=== PATIENT | male | born 1980 | race Caucasian/White ===

== ENCOUNTER 2017-10-03 22:33 | Inpatient (IN) ==
[2017-10-04] MEDS: Ondansetron 4 MG/2 ML VIAL IVP PRN ×3 (00:20→19:27)
[2017-10-04] MEDS ORDERED: Acetaminophen 325 MG TABLET PO PRN (01:28)
[2017-10-04] MEDS ORDERED: Naloxone 0.4 MG/ML INJ IVP PRN (01:28)
[2017-10-04] MEDS ORDERED: Ondansetron 4 MG/2 ML VIAL IVP PRN (01:30)
[2017-10-04] MEDS ORDERED: *HR* OxyCODONE Immed Rel 5 MG TABLET PO PRN (01:31)
--- NOTE | 2017-10-04 01:33 | Internal Med History&Physical ---
Date of Encounter: 10/04/17 Time of Encounter: 01:33 Internal Medicine - H&P: HPI Chief complaint: Nausea and vomiting Admitted From: Emergency Dept Plans for Post Hospital Care: Home History of present illness: Mr. Tello is a 37 year old male with no significant past medical history, who presents from [facility] with c/o- severe nausea and vomiting since yesterday. He reports being in his usual state of health until yesterday morning around 11.30am, when he started having refractory nausea and nonbloody, bilious vomiting, which turned slightly blood-tinged towards the end. He also has associated epigastric and chest pain and central abdominal pain, subjective fever and chills. No diarrhea, shortness of breath. No sick contacts at home, no outside food ingestion. No EGD in the past. Past Med Surg Social Fam HX - Past Medical History Source: patient Medical history: no medical history Psychiatric history: no psych history - Past Surgical History Surgical History: orthopedic, other (spinal fusion) - Social History Smoking Status: Current every day smoker Packs per day: 3/ Smokeless Tobacco Status: No Alcohol use: rarely Drug use: marijuana Occupational status: employed Current living situation: Home, With Family Activity Level: Independent ambulation Recent Out of Country Travel Within the Last 8 Weeks: No Exposure or Possible Exposure to Illness During Travel: No - Family History Grandfather Living Status: Cause of : stomach cancer Hx Family Cancer: Yes (stomach) Internal Medicine - H&P: Meds No Known Home Drugs 10/03/17 [History] 3 Allergy/AdvReac Type Severity Reaction Status Date / Time No Known Allergies Allergy Verified 10/03/17 20:03 All Systems PM: A 10-system review of systems was performed and is negative for pertinent findings except as documented above in the HPI. - Constitutional Constitutional: chills, fever(s) - EENT Eyes: no change in vision, no discharge, no pain, no photophobia Ears: no ear discharge, no ear pain, no tinnitus Nose, mouth and throat: no dysphagia, no nasal discharge, no neck pain, no sore throat - Cardiovascular Cardiovascular ROS IM: chest pain - Respiratory Respiratory: no cough, no dyspnea, no wheezing, no excessive phlegm production - Gastrointestinal Gastrointestinal: abdominal pain, nausea, vomiting - Musculoskeletal Musculoskeletal ROS IM: no numbness, no tingling - Integumentary Integumentary IM: no rash, no unusual bruising - Neurological Neurological ROS: no confusion, no convulsions, no focal weakness, no numbness, no tingling, no tremor(s) - Hematologic/Lymphatic Hematologic/Lymphatic: no easy bruising - Constitutional Vitals: Temp Pulse Resp BP Pulse Ox 97.7 F 92 16 149/93 96 10/04/17 00:26 10/04/17 00:10/04/17 00:10/04/17 00:10/04/17 00:26 General appearance: Present: mild distress, A&O X 3, answers questions appropriately - Respiratory Respiratory exam: Present: CTAB. Absent: accessory muscle use, rales, rhonchi, wheezes - Cardiovascular Cardiovascular exam: Present: RRR, +S1, +S2. Absent: diastolic murmur, gallop, rubs, systolic murmur - GI/Abdominal GI/Abdominal exam: Present: normal bowel sounds, soft (tenderness to deep palpation in epigastrium and central abdomen), no peritoneal signs. Absent: distended, tenderness - Extremities Exam Extremities exam: Present: full ROM, warm, radial pulses palpable and symmetrical. Absent: calf tenderness, cyanotic, pedal edema - Neurological Exam Neurological exam: Present: CN II-XII intact, oriented X3, no focal deficits. Absent: pronater drift, facial droop, speech deficit - Skin Skin exam: Present: dry, intact Internal Med - H&P Results - Labs CBC & Chem 7: 10/04/17 01:40 10/04/17 01:40 - Assessment and plan (1) Intractable nausea and vomiting Current Visit: Yes Status: Acute Assessment and plan: likely related to esophagitis/GERD; continue supportive care with IV hydration, PRN antiemetics and pain control with PRN Morphine; Qualifiers: Vomiting type: unspecified Qualified Code(s): R11.2 - Nausea with vomiting , unspecified (2) FRANCES (acute kidney injury) Current Visit: Yes Status: Acute Assessment and plan: due to dehydration and GI losses; continue IV hydration, replete electrolytes and monitor serum creatinine closely; (3) Esophagitis Current Visit: Yes Status: Acute Assessment and plan: CT abdomen/pelvis shows distal esophageal wall thickening, lymphadenopathy, s/o - inflammation; may require EGD and biopsy; GI consult; - Time Spent With Patient Total time spent is greater than 50% in coordination of care (as documented) at patient's floor/unit and/or counseling patient:
[2017-10-04 02:09] LABS: Basophils # 0.1 K/mcL (0.0-0.2); Basophils % 0.3 %; Eosinophils % 0.1 %; Hematocrit 45.7 % (37.5-50.1); Hemoglobin 15.7 g/dL (12.9-16.9); Immature Granulocytes % 0.5 % (0-4); Lymphocytes # 1.9 K/mcL (0.6-4.6); Lymphocytes % 11.2 %; Mean Corpuscular HGB Conc 34.4 g/dL (31.6-35.5); Mean Corpuscular Hemoglobin 30.3 pg (28.0-33.3); Mean Corpuscular Volume 88.1 fL (83.0-100.0); Mean Platelet Volume 9.9 fL (9.4-12.4); Monocytes # 1.4 K/mcL (0.0-1.3); Monocytes % 8.1 %; Neutrophils # 13.3 K/mcL (1.6-8.9); Platelet Count 242 K/mcL (140-400); Red Blood Count 5.19 M/mcL (4.19-5.50); Red Cell Distribution Width 13.9 % (11.5-14.5); Segmented Neutrophils % 79.8 %
[2017-10-04] MEDS: OXYCODONE Oral CONC 10 MG/0.5 ML ORAL.SYG SL PRN ×3 (02:14→19:36)
[2017-10-04] MEDS: Ringers Solution, Lactated 1,000 ML IVC SCH ×2 (02:15→13:58)
[2017-10-04 02:32] LABS: BUN/Creatinine Ratio 15 (6-26); Blood Urea Nitrogen 15 mg/dL (6-20); Calcium 8.8 mg/dL (8.6-10.3); Carbon Dioxide 30 mEq/L (23-29); Chloride 98 mEq/L (98-107); Glucose 115 mg/dL (70-105); Magnesium 1.9 mg/dL (1.6-2.6); Osmolality,Calculated 290 (280-300); Potassium 3.2 mEq/L (3.5-5.1); Sodium 139 mEq/L (136-145); eGFR For African Americans > 60 (> 60); eGFR For Non-African Americans > 60 (> 60)
[2017-10-04] MEDS ORDERED: Potassium Chloride Elixir 20 MEQ/15 ML UDC PO ONE (03:04)
[2017-10-04] MEDS: Pantoprazole 40 MG VIAL IVP SCH ×2 (09:35→16:06)
--- NOTE | 2017-10-04 10:17 | Event Note ---
Date of Encounter: 10/04/17 Time of Encounter: 08:40 Patient continues to have intractable nausea and vomiting and epigastric pain. He also reports some blood tinged emesis. Will keep nothing by mouth. Start patient on IV PPI. Consult gastroenterology for upper GI endoscopy. IV fluids. Monitor vital signs closely. Monitor blood counts closely.
--- NOTE | 2017-10-04 11:42 | Gastroenterology Consult Note ---
<Papito Carl Richi - Last Filed: 10/04/17 11:40> Date of Encounter: 10/04/17 Time of Encounter: 10:40 - Assessment and plan (1) Esophagitis Current Visit: Yes Status: Acute Assessment and plan: CT A/P with marked mural thickening of the distal esophagus, with areas esophageal sphincter stranding and small lymph nodes concerning for esophagitis versus neoplasm. Plan for EGD today to r/o esophagitis, gastritis, duodenitis, PUD, MW tear, or AVM. Continue twice a day PPI. Patient educated regarding lifestyle modifications including: (1) avoidance of foods that may precipitate reflux (eg, coffee, alcohol, chocolate, fatty foods) . (2) avoidance of acidic foods that may precipitate heartburn (eg, citrus, carbonated drinks, spicy foods). (3) adoption of behaviors that may reduce esophageal acid exposure (see weight loss, smoking cessation, raising the head of the bed, and avoiding recumbency for 2-3 hours after meals). (2) Intractable nausea and vomiting Current Visit: Yes Status: Acute Assessment and plan: Likely secondary to esophagitis and GERD. Plan for EGD today. Continue antiemetics and PPI. Qualifiers: Vomiting type: unspecified Qualified Code(s): R11.2 - Nausea with vomiting , unspecified - Time Spent With Patient Total time spent is greater than 50% in coordination of care (as documented) at patient's floor/unit and/or counseling patient: GI History of Present Illness - Data of Consult Patient: new to practice Consult date: 10/04/17 Requesting Physician: Shantel Monreal MD - Consult Narrative Reason for consult: Nausea, vomiting, esophageal wall thickening History of present illness: Mr. Tello is a 37 year old male with no significant past medical history who presented to the clinic ED with complaints of severe nausea and vomiting that started the day before admission. He reports having nausea and nonbloody, bilious vomiting, which turned slightly blood-tinged towards the end. He also has associated chest pain and epigastric pain. Pt reports heavy use of ibuprofen for chronic pain. CT A/P with marked mural thickening of the distal esophagus, with areas esophageal sphincter stranding and small lymph nodes concerning for esophagitis versus neoplasm. Procedures: None NSAIDs: Ibuprofen Anticoagulation: None Past Med Surg Social Fam HX - Past Medical History Medical history: no medical history Psychiatric history: no psych history - Past Surgical History Surgical History: orthopedic, other (spinal fusion) - Social History Smoking Status: Current every day smoker Packs per day: 3 Smokeless Tobacco Status: No Alcohol use: rarely Drug use: marijuana - Family History Grandfather Living Status: Cause of : stomach cancer Hx Family Cancer: Yes (stomach) - Gastrointestinal Gastrointestinal: Present: as per HPI - Constitutional Constitutional: as per HPI - EENT Eyes: as per HPI Ears: Present: as per HPI Nose, mouth and throat: Present: as per HPI - Cardiovascular Cardiovascular ROS: Present: as per HPI - Respiratory Respiratory IM: Present: as per HPI - Genitourinary Genitourinary: Absent: change in color, Urinary frequency - Neurological ROS Neurological GI: Present: as per HPI - Hematologic/Lymphatic Hematologic/Lymphatic pediatric: Present: as per HPI - Musculoskeletal Musculoskeletal ROS GI: Present: as per HPI - Integumentary Integumentary GI: Present: as per HPI - Psychiatric ROS Psychiatric GI: Present: as per HPI - Endocrine Endocrine IM: Present: as per HPI - Constitutional Vitals: Temp Pulse Resp BP Pulse Ox 98.3 F 60 17 153/83 97 10/04/17 11:09 10/04/17 11:09 10/04/17 11:09 10/04/17 11:09 10/04/17 11:09 General appearance: Present: cooperative, A&O X 3, no acute distress, answers questions appropriately - Head Head exam: Present: atraumatic, normocephalic - Eye Eye exam: Present: normal appearance, sclera anicteric - ENT ENT exam: Present: mucous membranes dry - Neck Neck exam general surgery: Present: normal inspection, trachea midline - Respiratory Respiratory exam: Present: CTAB. Absent: rales, rhonchi - Cardiovascular Cardiovascular exam: Present: RRR, +S1, +S2 - GI/Abdominal GI/Abdominal exam: Present: soft, tenderness (epigastric and RUQ), no peritoneal signs. Absent: distended, firm, guarding - Rectal Rectal exam: Present: deferred - Extremities Exam Extremities exam: Present: warm - Neurological Exam Neurological exam: Present: no focal deficits - Psychiatric Psychiatric exam: Present: normal affect, normal mood - Skin Skin exam: Present: dry, intact, normal color, warm Results - Labs CBC & Chem 7: 10/04/17 01:40 10/04/17 01:40 Labs: Last Result Calcium 8.8 mg/dL (8.6-10.3) 10/04/17 01:40 Entire Visit Hgb 15.7 g/dL (12.9-16.9) D 10/04/17 01:40 Hct 45.7 % (37.5-50.1) 10/04/17 01:40 Consult Discharge Plan - Plan Referrals: Papito Carl, VERIFICATION LEAD [Advanced Practice Nurse] - (hospital follow up appointment web requested. office will call with date and time of appointment. ) Roge King, [Primary Care Provider] - 10/10/17 11:30 am <Keyur Peña - Last Filed: 10/05/17 12:26> Date of Encounter: 10/04/17 - Time Spent With Patient Total time spent is greater than 50% in coordination of care (as documented) at patient's floor/unit and/or counseling patient: GI History of Present Illness - Data of Consult Requesting Physician: Shantel Monreal MD - Consult Narrative History of present illness: Mr. Tello is a 37 year old male - Constitutional Vitals: Temp Pulse Resp BP Pulse Ox 98.5 F 76 17 144/84 94 10/05/17 11:00 10/05/17 11:00 10/05/17 11:00 10/05/17 11:00 10/05/17 11:00 Results - Labs CBC & Chem 7: 10/05/17 01:04 10/05/17 01:04 Labs: Last Result Calcium 8.5 mg/dL (8.6-10.3) L 10/05/17 01:04 Entire Visit Hgb 14.8 g/dL (12.9-16.9) 10/05/17 01:04 Hct 43.7 % (37.5-50.1) 10/05/17 01:04 - Attending Attestation Mr. Tello is a very pleasant 37-year-old white male who comes in with severe epigastric pain radiating to his back. He taking a lot of ibuprofen up to 12 tablets a day for his lower back. Second admission over the last few months for the same problem. I suspect patient has severe ulcerative esophagitis and possibly nonsteroidal induced gastropathy and duodenal but the as probable etiology of this problem. We will make further recommendations after the endoscopy which is planned for this morning. Keep the patient strictly nothing by mouth Thank you I have personally performed a face to face evaluation on this patient. I have reviewed and agree with the care plan. History and Exam by me shows: very much for this consultation
[2017-10-04] MEDS ORDERED: *HR* Propofol 200 MG/20 ML VIAL IVP ONE ×2 (11:52→12:09)
[2017-10-04] MEDS ORDERED: Lidocaine -MPF 2% 2 ML VIAL ONE (11:53)
--- NOTE | 2017-10-04 12:20 | Anesthesia Evaluation PreOp ---
Date of Encounter: 10/04/17 Time of Encounter: 12:18 - Past History Planned Operation: EGD Cardiac History: Denies any Significant Hx Pulmonary History: Smoker (10 years) YARD SWITCH OPERATOR History: Denies Any Significant HX Other Medical History: Denies Any Significant HX Anesthesia History: No Prior Anesthetic Complications, Past Anesthesia Alcohol Use: rarely Drug use: marijuana Medications and Allergies No Known Home Drugs 10/03/17 [History] 3 Allergy/AdvReac Type Severity Reaction Status Date / Time No Known Allergies Allergy Verified 10/03/17 20:03 - Meds/Allergy Pre-op Review Medications Reviewed: Yes Allergies Reviewed: Yes Beta Blockers on Current Med List: No Anesthesia Results - Labs 10/04/17 01:40 10/04/17 01:40 Anesthesia Exam Vital Signs/O2 Sat, Most Current Temp Pulse Resp BP Pulse Ox 98.3 F 60 17 153/83 97 10/04/17 11:09 10/04/17 11:09 10/04/17 11:09 10/04/17 11:09 10/04/17 11:09 Height: 5'11'' Weight: 208 lbs/95 kg NPO (# of Hours): 8 Pain Scale: 0 Pain Scale Used: Numeric (1 - 10) - HEENT Pupil (Motor): EOMI Mallampati: III Teeth: Normal Oral Opening: Greater than 3 - YARD SWITCH OPERATOR LOC: Oriented YARD SWITCH OPERATOR Motor: Normal RUE, Normal LUE, Normal RLE, Normal LLE, Normal Face YARD SWITCH OPERATOR Sensory: Normal: RUE, LUE, RLE, LLE, Face - Cardiac Rhythm: Regular Murmur: None - Pulmonary Breath Sounds: bilateral Clear Respiratory Effort: Symmetrical Anesthesia Assess/Plan ASA Score: 2 Modified Fredy Scale for Level of Consciousness: Cooperative, oriented, and tranquil Anesthetic Plan: MAC Monitoring Plan: Standard Monitors
[2017-10-04] MEDS ORDERED: Tetracaine/Benzocaine/Butamben 200MG/SPRAY (100SPY/BOT) MM ONE (13:00)
[2017-10-04] MEDS: Sucralfate 1 GM TABLET PO SCH ×2 (16:06→22:27)
[2017-10-05 01:43] LABS: Basophils # 0.1 K/mcL (0.0-0.2); Basophils % 0.5 %; Eosinophils # 0.1 K/mcL (0.0-0.6); Eosinophils % 0.5 %; Hematocrit 43.7 % (37.5-50.1); Hemoglobin 14.8 g/dL (12.9-16.9); Immature Granulocytes % 0.4 % (0-4); Lymphocytes # 2.6 K/mcL (0.6-4.6); Lymphocytes % 17.5 %; Mean Corpuscular HGB Conc 33.9 g/dL (31.6-35.5); Mean Corpuscular Volume 88.5 fL (83.0-100.0); Mean Platelet Volume 9.9 fL (9.4-12.4); Monocytes # 1.4 K/mcL (0.0-1.3); Monocytes % 9.5 %; Neutrophils # 10.4 K/mcL (1.6-8.9); Platelet Count 225 K/mcL (140-400); Red Blood Count 4.94 M/mcL (4.19-5.50); Red Cell Distribution Width 13.9 % (11.5-14.5); Segmented Neutrophils % 71.6 %
[2017-10-05 01:59] LABS: BUN/Creatinine Ratio 14 (6-26); Blood Urea Nitrogen 13 mg/dL (6-20); Calcium 8.5 mg/dL (8.6-10.3); Carbon Dioxide 25 mEq/L (23-29); Chloride 103 mEq/L (98-107); Glucose 90 mg/dL (70-105); Osmolality,Calculated 284 (280-300); Potassium 3.5 mEq/L (3.5-5.1); Sodium 137 mEq/L (136-145); eGFR For African Americans > 60 (> 60); eGFR For Non-African Americans > 60 (> 60)
[2017-10-05] MEDS: Pantoprazole 40 MG VIAL IVP SCH ×2 (05:42→16:31)
[2017-10-05] MEDS: Ondansetron 4 MG/2 ML VIAL IVP PRN ×3 (07:44→20:19)
[2017-10-05] MEDS: Sucralfate 1 GM TABLET PO SCH ×4 (07:44→20:18)
[2017-10-05] MEDS: OXYCODONE Oral CONC 10 MG/0.5 ML ORAL.SYG SL PRN ×2 (10:02→18:27)
[2017-10-05] MEDS: Lidocaine Viscous Oral Soln 15 ML SOLUTION MM SCH ×2 (11:41→22:07)
[2017-10-05] MEDS ORDERED: GI Cocktail 40 ML EACH PO ONE (14:30)
--- NOTE | 2017-10-05 14:33 | Internal Med Progress Note ---
Date of Encounter: 10/05/17 Time of Encounter: 08:20 - Assessment and plan (1) Esophageal ulcer Current Visit: Yes Status: Acute Assessment and plan: Multiple nonbleeding esophageal ulcers. Likely NSAIDs related. Patient continues to have significant abdominal pain. Will continue supportive care. We will add viscous lidocaine orally for symptomatic relief. Antiemetics for nausea. Continue clear liquid diet. Repeat EGD in 4 weeks. Continue PPI and Carafate Qualifiers: Esophageal ulcer bleeding: without bleeding Qualified Code(s): K22.10 - Ulcer of esophagus without bleeding (2) Esophagitis Current Visit: Yes Status: Acute Assessment and plan: Treating symptomatically. Due to NSAIDs (3) Intractable nausea and vomiting Current Visit: Yes Status: Acute Assessment and plan: Continue antiemetic treatment with Zofran. Qualifiers: Vomiting type: cyclical vomiting Qualified Code(s): G43.A1 - Cyclical vomiting, intractable (4) FRANCES (acute kidney injury) Current Visit: Yes Status: Acute Assessment and plan: Resolved (5) Gastric ulcer Current Visit: Yes Status: Acute Assessment and plan: Multiple gastric ulcers. Nonbleeding. Due to NSAID use. Continue PPI and Carafate Qualifiers: Gastric ulcer chronicity: acute Gastric ulcer complication status: without hemorrhage or perforation Qualified Code(s): K25.3 - Acute gastric ulcer without hemorrhage or perforation (6) Hypokalemia Current Visit: Yes Status: Acute Assessment and plan: Improved with repletion - Time Spent With Patient Total time spent is greater than 50% in coordination of care (as documented) at patient's floor/unit and/or counseling patient: - Subjective Interval history: Patient had an episode of emesis last night after he ate. He has not any eaten anything this morning. Continues to have epigastric pain. No new episodes of hematemesis. - Constitutional Vitals: Temp Pulse Resp BP Pulse Ox 98.5 F 76 17 144/84 94 10/05/17 11:00 10/05/17 11:00 10/05/17 11:00 10/05/17 11:00 10/05/17 11:00 General appearance: Present: cooperative, mild distress, A&O X 3, answers questions appropriately - Neck Neck exam general surgery: Present: supple, trachea midline. Absent: lymphadenopathy - Respiratory Respiratory exam: Present: CTAB. Absent: accessory muscle use, rales, rhonchi, wheezes - Cardiovascular Cardiovascular exam: Present: RRR, +S1, +S2. Absent: diastolic murmur, gallop, rubs, systolic murmur - GI/Abdominal GI/Abdominal exam: Present: normal bowel sounds, soft, tenderness (Epigastric), no peritoneal signs. Absent: distended - Extremities Exam Extremities exam: Present: warm, radial pulses palpable and symmetrical. Absent : calf tenderness, cyanotic, pedal edema - Neurological Exam Neurological exam: Present: CN II-XII intact, oriented X3, no focal deficits. Absent: pronater drift, facial droop, speech deficit - Skin Skin exam: Present: dry, intact Internal Medicine: Result - Labs CBC & Chem 7: 10/05/17 01:04 10/05/17 01:04 Labs: Short CBC 10/05/17 Range/Units 01:04 WBC 14.6 H (4.3-11.1) K/mcL Hgb 14.8 (12.9-16.9) g/dL Hct 43.7 (37.5-50.1) % Plt Count 225 (140-400) K/mcL Neutrophils # 10.4 H (1.6-8.9) K/mcL BMP 10/05/17 01:04 Sodium 137 Potassium 3.5 Chloride 103 Carbon Dioxide 25 BUN 13 Creatinine 0.95 Glucose 90 Calcium 8.5 L - VTE Documentation of Mechanical Device: Intermittent pneumatic compression device Consult Discharge Plan - Plan Referrals: Papito Carl, LUNCHROOM FOOD SERVICE SUPERVISOR [Advanced Practice Nurse] - (hospital follow up appointment web requested. office will call with date and time of appointment. ) oRge King DO [Primary Care Provider] - 10/10/17 11:30 am
[2017-10-06] MEDS: OXYCODONE Oral CONC 10 MG/0.5 ML ORAL.SYG SL PRN (05:10)
[2017-10-06] MEDS: Pantoprazole 40 MG VIAL IVP SCH (05:10)
--- NOTE | 2017-10-06 09:14 | Discharge Summary ---
- NOTES TO OUTPATIENT PROVIDER Notes to Outpatient Provider: Patient admitted with acute epigastric abdominal pain and intractable nausea and vomiting. Diagnosed with multiple nonbleeding esophageal and gastric ulcers due to chronic NSAID use. Treated with Carafate and Protonix. Will need repeat EGD in 4 weeks. Orders not resulted at time of discharge: Pending orders 10/04/17 13:18 Surgical Pathology [PTH] Routine Date of Encounter: 10/06/17 Time of Encounter: 09:08 - Discharge Diagnosis (1) Esophageal ulcer Priority: Primary Status: Acute Qualifiers: Esophageal ulcer bleeding: without bleeding Qualified Code(s): K22.10 - Ulcer of esophagus without bleeding (2) Esophagitis Priority: Secondary Status: Acute (3) Intractable nausea and vomiting Priority: Secondary Status: Acute Qualifiers: Vomiting type: cyclical vomiting Qualified Code(s): G43.A1 - Cyclical vomiting, intractable (4) FRANCES (acute kidney injury) Priority: Secondary Status: Resolved (5) Gastric ulcer Priority: Secondary Status: Acute Qualifiers: Gastric ulcer chronicity: acute Gastric ulcer complication status: without hemorrhage or perforation Qualified Code(s): K25.3 - Acute gastric ulcer without hemorrhage or perforation (6) Hypokalemia Priority: Secondary Status: Resolved Hospital course: Mr. Tello is a 37 year old male patient with no significant past medical history besides chronic back pain presented to the ER with complaints of intractable nausea and vomiting along with epigastric pain. He has been taking Motrin lately for back pain. Gastroenterology was consulted. Patient was not placed on PPI. He did have episodes of coffee-ground emesis. He underwent upper GI endoscopy which showed multiple nonbleeding esophageal and gastric ulcers. Most likely due to chronic NSAID use. He was advised against using NSAIDs again. Placed on Carafate. He has continued to have symptoms of abdominal pain but he is able to tolerate liquid diet. As such she is stable to be discharged home. He will follow up with GI in 4 weeks for repeat upper GI endoscopy. He will continue to take twice daily PPI and also continue Carafate. Discharge discussed with: patient, nurse - Time Spent with Patient Total time spent providing and/or coordinating discharge services: Less than 30 minutes (25 min) - Discharge Medications Prescriptions: Ondansetron HCl [Zofran] 4 mg PO Q8HR PRN #30 tab PRN Reason: Nausea HYDROcodone/Acet 5/325 mg [[place] 5-325 mg] 1 tab PO Q6H PRN 5 Days #14 tab PRN Reason: Moderate Pain Omeprazole [PriLOSEC] 20 mg PO BIDAC #60 cap Sucralfate [Carafate] 1 gm PO QIDAC #120 tablet Home Medications: HYDROcodone/Acet 5/325 mg [[place] 5-325 mg] 1 tab PO Q6H PRN 5 Days #14 tab 10/06 [Rx] Omeprazole [PriLOSEC] 20 mg PO BIDAC #60 cap 10/06/17 [Rx] Ondansetron HCl [Zofran] 4 mg PO Q8HR PRN #30 tab 10/06/17 [Rx] Sucralfate [Carafate] 1 gm PO QIDAC #120 tablet 10/06/17 [Rx] Allergies/Adverse Reactions: 3 Allergy/AdvReac Type Severity Reaction Status Date / Time No Known Allergies Allergy Verified 10/03/17 20:03 Date of admission: 10/04/17 01:28 Primary care physician: Roge King DO Consults: 10/04/17 01:31 Consult to Gastroenterology [CONS] Routine Consulting Provider: Gastroenterology Jen Reason for Consult: Intractable nausea and emesis; CT abd shows esophageal wall thickening Call Completed: No Discharging clinician: Shantel Monreal Anticipated date of discharge: 10/06/17 - Constitutional Vitals: Temp Pulse Resp BP Pulse Ox 98.4 F 74 17 151/81 95 10/06/17 07:46 10/06/17 07:46 10/06/17 07:46 10/06/17 07:46 10/06/17 07:46 General appearance: Present: cooperative, mild distress, A&O X 3, answers questions appropriately - Cardiovascular Cardiovascular exam: Present: RRR, +S1, +S2. Absent: diastolic murmur, gallop, rubs, systolic murmur - GI/Abdominal GI/Abdominal exam: Present: normal bowel sounds, soft, tenderness (epigastric), no peritoneal signs. Absent: distended - Extremities Exam Extremities exam: Present: warm, radial pulses palpable and symmetrical. Absent : calf tenderness, cyanotic, pedal edema - Patient Status Disposition: Home, Self-Care Functional capacity at discharge: independent ambulation Overall status at discharge: patient is progressing back to baseline - Discharge Instructions Follow Up With: Papito Carl, ASSEMBLER UNIT [Advanced Practice Nurse] - (hospital follow up appointment web requested. office will call with date and time of appointment. ) Roge King DO [Primary Care Provider] - 10/10/17 11:30 am - Diet and Activity Activity: increase activity as tolerated Diet: low fat, low cholesterol, low salt diet, other (clear liquid diet and advance slowly as tolerated) - VTE Documentation of Mechanical Device: Intermittent pneumatic compression device
[2017-10-06] MEDS ORDERED: *HR* HYDROcodone/Acet 5/325 mg TABLET PO PRN (09:20)
[2017-10-06] MEDS: Sucralfate 1 GM TABLET PO SCH ×2 (09:27→11:58)
[2017-10-06] MEDS: Ondansetron 4 MG/2 ML VIAL IVP PRN (09:28)
[2017-10-06] MEDS: Lidocaine Viscous Oral Soln 15 ML SOLUTION MM SCH (09:28)
[2017-10-06 12:38] VITALS: BP 138/89
== END 2017-10-06 15:17 | disposition home or self-care (01) | DRG 381 ==
LOC: 3NENU → SUATTDRO 10-04 01:28
PROVIDERS: ADMIT Internal Medicine; ATTEND Internal Medicine